=== PATIENT | male | born 2000 | race Caucasian/White ===

== ENCOUNTER → 2021-07-24 | Outpatient (CLI) | payer OTHER ==
--- NOTE | 2021-07-24 13:13 | KCIC ---
STUDY: MRI of the left knee without contrast INDICATION: Left knee pain. COMPARISON: None. TECHNIQUE: Multiplanar MR imaging of the left knee performed without the use of intravenous or intra- articular contrast. FINDINGS: Menisci: Intact. Cruciate ligaments: Intact. Collateral ligaments: The components of the medial and lateral collateral ligament complexes are inta ct. Unremarkable retinacula and IT band. Tendons: No tendon tear or tendinosis. Cartilage: Patellofemoral: Thin T2 signal elevation at the upper margin of the patellar median facet, image 12 s eries 5, favored extra-cartilaginous as opposed to a superficial delamination given apparent continui ty with signal more clearly superficial to the odd facet on the same image. The trochlear cartilage i s unremarkable. Lateral compartment: Intact. Medial compartment: Intact. Bones: Unremarkable marrow signal. The TT-TG distance measures a centimeter. Miscellaneous: Normal volume joint fluid. The various fat pads associated with the knee are within no rmal limits to include mild signal elevation within Hoffa's fat along the ligamentum mucosum. No burs itis or relevant ganglion cyst. IMPRESSION: Intact menisci, cruciate ligaments and collateral ligaments. No acute or significant chronic finding is seen throughout the knee to help explain the patient's symptoms. Electronically signed by: SUN HATCH MD (07/24/2021 1:10 PM) [id number]
== END ==
LOC: KCIC MRI 09:30
PROVIDERS: ATTEND Family Medicine
DX: M25.562 Pain in left knee (principal)
CPT/HCPCS: 73721

== ENCOUNTER → 2021-07-24 | Outpatient (CLI) | payer OTHER ==
--- NOTE | 2021-07-24 11:35 | KCIC ---
EXAMINATION: MRI RIGHT WRIST WITHOUT IV CONTRAST CLINICAL HISTORY: Right wrist pain. New onset of right wrist pain across posterior carpals. NKI TECHNIQUE: Multiplanar multisequential images obtained through the wrist without intravenous contrast . COMPARISON: None FINDINGS: TRIANGULAR FIBROCARTILAGE: Intact. SCAPHOLUNATE LIGAMENT: Intact. LUNOTRIQUETRAL LIGAMENT: Intact. FLEXOR TENDONS/CARPAL TUNNEL: Within normal limits. EXTENSOR TENDONS: Mild extensor carpi radialis brevis brevis and longus peritendinous fluid and minim al extensor pollicis longus peritendinous fluid proximal to the intersection of the second and third extensor compartments. Minimal soft tissue edema medial to the extensor carpi radialis brevis tendon also noted distal to the intersection. Extensor tendons otherwise within normal limits. BONES/MARROW: No evidence of acute fracture or suspicious marrow replacing process. JOINT FLUID: No joint effusion or synovitis. IMPRESSION: Very mild extensor tenosynovitis as described, suggestive of distal intersection syndrome. Electronically signed by: Max Brody DO (07/24/2021 11:33 AM) YASMEEN
== END ==
LOC: KCIC MRI 08:57 → EDUNIT# 11:00
PROVIDERS: ATTEND Family Medicine
DX: M65.88 Other synovitis and tenosynovitis, other site (principal); M25.562 Pain in left knee
CPT/HCPCS: 73221